=== PATIENT | female | born 1980 | race Hispanic/Latino ===

== ENCOUNTER 2018-06-11 08:01 | Outpatient (CLI) | payer BC ==
[2018-06-11 08:53] LABS: BHCG - Serum Negative (NEGATIVE); Pregs Control Background? CLEAR/WHITE (CLR/WHITE); Pregs Control Bar Appear? YES (CONTROL BAR)
--- NOTE | 2018-06-11 12:46 | RAD ---
HYSTEROSALPINGOGRAM: HISTORY: Infertility. FINDINGS: After explaining the procedure and answering all questions, the uterine cervix was carefully exposed and prepped. Initial attempt to advance a small dilator through the cervix was difficult. A small a mount of mucus suddenly appeared, indicating that there was disruption of a Nabothian cyst. A small catheter was then carefully placed and balloon inflated. A small amount of Isovue [address] was instilled into the uterine cavity, and demonstrated normal capacity and contour. Each fallopi an tube showed immediate opacification and bilateral spillage. Excess contrast was aspirated and the catheter was removed. The patient tolerated the procedure well and was dismissed in good condition. Fluoro time 0.6 minutes. IMPRESSION: 1. Patent bilateral fallopian tubes. 2. Initially, nabothian cyst was partially blocking the external os. Cyst was ruptured at the time of the exam. POS: [facility]
== END 2018-06-11 08:02 | disposition home or self-care (01) ==
LOC: RAD 08:01
PROVIDERS: ATTEND Obstetrics & Gynecology
DX: Z31.41 Encounter for fertility testing (principal); N88.8 Other specified noninflammatory disorders of cervix uteri
CPT/HCPCS: 36415; 58340; 74740; 84703

== ENCOUNTER 2019-07-29 09:55 | Day surgery (SDC) | payer MEDICAID ==
[2019-07-26 11:31] VITALS: BMI 25.3
[2019-07-26 12:17] LABS: Hemoglobin 14.1 g/dL (12.0-16.0); Mean Corpuscular HGB CONC 34.2 g/dL (32.0-36.0); Mean Corpuscular Hemoglobin 28.8 pg (27.0-31.0); Mean Corpuscular Volume 84.2 fL (78.0-98.0); Mean Platelet Volume 8.3 fL (7.4-10.4); Platelet Count 273 thou/uL (130-400); RBC Distribution Width 12.5 % (11.5-14.5); White Blood Cell (WBC) Count 8.1 thou/uL (4.8-10.8)
[~2019-07-29 09:55] MED LIST: Dexamethasone 20 MG/5 ML VIAL ONE; Lidocaine 1% PF 5 ML VIAL ONE; Ondansetron PF 4 MG/2 ML Vial ONE; PROPOFOL 200 MG/20 ML VIAL ONE
[2019-07-29] MEDS ORDERED: Gabapentin 300 MG CAP ONE (10:14)
[2019-07-29] MEDS ORDERED: Famotidine/PF 20 mg/2ml Vial ONE (10:14)
[2019-07-29] MEDS ORDERED: CeleCOXIB 100 MG CAP ONE (10:14)
[2019-07-29] MEDS ORDERED: Scopolamine 1.5 mg/72 hour Patch ONE (10:45)
[2019-07-29] MEDS ORDERED: Fentanyl 100 MCG/2 ML VIAL ONE ×2 (12:24→14:41)
[2019-07-29] MEDS ORDERED: Midazolam HCl 2 mg/2 ml Vial ONE (12:50)
[2019-07-29] MEDS ORDERED: Meperidine HCl/PF 25 MG/ML VIAL ONE (14:17)
[2019-07-29] MEDS ORDERED: HYDROcodone/Acetaminophen 5/325 mg Tablet ONE (15:38)
--- NOTE | 2019-07-29 17:00 | OP ---
DATE OF PROCEDURE: 07/29/2019 TRAINING DEVELOPMENT MANAGER: None. ANESTHESIA: GETA. COMPLICATIONS: None. ESTIMATED BLOOD LOSS: Less than 20 mL. PROCEDURE PERFORMED: Hysteroscopy with cervical dilation and curettage. PREOPERATIVE DIAGNOSIS: Retained products of conception. POSTOPERATIVE DIAGNOSIS: Retained products of conception. DESCRIPTION OF PROCEDURE: The patient was taken back to the OR with IV fluids running. Once she was in the OR, anesthesia was obtained. Once the patient was asleep, she was placed in low dorsal lithotomy position, and the vagina was prepped and draped in normal fashion for hysteroscopy. The bladder was drained. Surgeon was gowned and gloved. An operative speculum was placed into the vagina, and the cervix was serially dilated to approximately 18-Chinese. The hysteroscope was then placed under direct visualization through the cervix into the endometrial cavity with abnormal-appearing tissue at the posterior side consistent with products of conception. Hysteroscope was removed. Sharp curettage was performed to remove the products of conception until uterine cry was noted. After it was felt all products of conception were removed, the hysteroscope was replaced into the endometrial cavity with normal findings. All instruments were then removed. The tenaculum site was hemostatic. The counts were correct, and the patient was then cleaned and dried, extubated, and taken to the recovery room in good condition. Job ID: [id number]
== END 2019-07-29 16:30 | disposition home or self-care (01) ==
LOC: SDC 09:55
PROVIDERS: ATTEND Obstetrics & Gynecology
PROC: 0UDB8ZZ Extraction of Endometrium, Via Natural or Artificial Opening Endoscopic (ICD-10-PCS; principal; 2019-07-29)
DX: O72.2 Delayed and secondary postpartum hemorrhage (principal); Z79.82 Long term (current) use of aspirin; Z79.899 Other long term (current) drug therapy
CPT/HCPCS: 36415; 84702; 85027; 86850; 86900; 86901; 88305; J0690; J1100; J2001; J2175; J2250; J2405; J2704; J3010; S0028

== ENCOUNTER 2019-08-29 01:12 | Emergency (ER) | payer MEDICAID, SELFPAY | END 2019-08-29 01:35 | disposition home or self-care (01) | LOC: ERS 01:12 | DX: S01.81XA Laceration without foreign body of other part of head, initial encounter (principal); F32.9 Major depressive disorder, single episode, unspecified; Z79.82 Long term (current) use of aspirin; Z79.899 Other long term (current) drug therapy; W01.190A Fall on same level from slipping, tripping and stumbling with subsequent striking against furniture, initial encounter | CPT/HCPCS: 12011 ==